=== PATIENT | female | born 1935 | race Caucasian/White ===

== ENCOUNTER 2016-08-19 23:45 | Inpatient (IN) | payer OTHER ==
[~2016-08-19] VITALS: Ht 152.4 cm; Wt 58.6 kg
[~2016-08-19 23:45] MED LIST: ALENDRONATE SOD70 M2 PO
[2016-08-20 00:18] LABS: BASOPHIL % 0.3 % (0-2); PLATELET COUNT 277 x10^3mcL (130-400); RED CELL DISTRIBUTION WIDTH 13.6 % (11.5-14.5)
[2016-08-20 00:28] LABS: CALCIUM 8.7 mg/dL (8.5-10.1); CARBON DIOXIDE 26.6 mmol/L (21-32); CHLORIDE SERUM 107 mmol/L (98-107); GLUCOSE SERUM 155 mg/dL (74-106); POTASSIUM SERUM 3.8 mmol/L (3.5-5.1); SODIUM SERUM 143 mmol/L (136-145)
[2016-08-20 00:32] LABS: ALBUMIN 3.7 g/dL (3.4-5.0); ALKALINE PHOSPHATASE 99 U/L (46-116); ALT/SGPT 14 U/L (14-59); AST/SGOT 14 U/L (15-37); BILIRUBIN TOTAL 0.2 mg/dL (0.20-1.00); TOTAL PROTEIN, SERUM 7.9 g/dL (6.4-8.2)
[2016-08-20 02:44] VITALS: BP 127/41
[2016-08-20] MEDS ORDERED: ASPIR 8181 MG PO (02:53)
[2016-08-20] MEDS ORDERED: OMEPRAZOLE20 M4 PO (02:53)
[2016-08-20] MEDS ORDERED: RANITIDINE HCL300 MG PO (02:54)
[2016-08-20] MEDS ORDERED: BONIVA150 M1 PO (02:54)
[2016-08-20 04:22] LABS: MAGNESIUM 1.9 mg/dL (1.8-2.4); PHOSPHOROUS 2.7 mg/dL (2.5-4.9)
[2016-08-20 04:35] LABS: CHOLESTEROL/HDL RATIO 3.6
[2016-08-20 04:51] LABS: FREE T4 1.14 ng/dL (0.76-1.46); FREE THYROXINE INDEX 2.7 ug/dL (1.4-4.5); T4(THYROXINE) 7.5 ug/dL (4.7-13.3)
[2016-08-20 05:09] LABS: T3 TOTAL 0.99 ng/mL
[2016-08-20 07:24] LABS: AMPHETAMINE QUAL UR NONE DETECTED (NEG <=1000)
[2016-08-20 09:42] LABS: UA SPECIFIC GRAVITY >=1.030 (1.005-1.035); microscopic required? YES; urine erythrocyte NEGATIVE (NEGATIVE)
[2016-08-20 10:21] VITALS: BP 118/60
[2016-08-20 12:46] LABS: BASOPHIL % 0.1 % (0-2); PLATELET COUNT 222 x10^3mcL (130-400); RED CELL DISTRIBUTION WIDTH 13.7 % (11.5-14.5)
[2016-08-20 12:54] LABS: CALCIUM 8.1 mg/dL (8.5-10.1); CHLORIDE SERUM 109 mmol/L (98-107); CREATININE SERUM 0.7 mg/dL (0.6-1.0); GLUCOSE SERUM 107 mg/dL (74-106); POTASSIUM SERUM 3.9 mmol/L (3.5-5.1); SODIUM SERUM 141 mmol/L (136-145)
[2016-08-20 15:00] VITALS: BP 123/63
[2016-08-20 18:33] VITALS: BP 106/69
[2016-08-20 22:31] VITALS: BP 122/61
[2016-08-21 00:04] LABS: BASOPHIL % 0.2 % (0-2); PLATELET COUNT 205 x10^3mcL (130-400); RED CELL DISTRIBUTION WIDTH 13.8 % (11.5-14.5)
[2016-08-21 05:43] VITALS: BP 102/62
[2016-08-21 06:37] LABS: BASOPHIL % 0.2 % (0-2); PLATELET COUNT 199 x10^3mcL (130-400); RED CELL DISTRIBUTION WIDTH 13.6 % (11.5-14.5)
[2016-08-21 06:52] LABS: CALCIUM 7.8 mg/dL (8.5-10.1); CHLORIDE SERUM 111 mmol/L (98-107); CREATININE SERUM 0.7 mg/dL (0.6-1.0); GLUCOSE SERUM 99 mg/dL (74-106); PHOSPHOROUS 2.8 mg/dL (2.5-4.9); POTASSIUM SERUM 3.6 mmol/L (3.5-5.1); SODIUM SERUM 144 mmol/L (136-145)
[2016-08-21 09:15] VITALS: BP 138/71
[2016-08-21 17:27] VITALS: BP 124/58
[2016-08-21 21:10] VITALS: Ht 152.4 cm; Wt 58.6 kg
[2016-08-21 22:07] VITALS: BP 118/59
[2016-08-22 06:20] VITALS: BP 114/53
[2016-08-22 06:32] LABS: CALCIUM 7.8 mg/dL (8.5-10.1); CARBON DIOXIDE 26.3 mmol/L (21-32); CHLORIDE SERUM 108 mmol/L (98-107); CREATININE SERUM 0.8 mg/dL (0.6-1.0); GLUCOSE SERUM 130 mg/dL (74-106); SODIUM SERUM 141 mmol/L (136-145)
[2016-08-22 08:26] LABS: BASOPHIL % 0.4 % (0-2); PLATELET COUNT 189 x10^3mcL (130-400); RED CELL DISTRIBUTION WIDTH 14.1 % (11.5-14.5)
[2016-08-22 10:01] VITALS: BP 108/46
[2016-08-22 16:39] LABS: BASOPHIL % 0.1 % (0-2); PLATELET COUNT 185 x10^3mcL (130-400); RED CELL DISTRIBUTION WIDTH 13.7 % (11.5-14.5)
[2016-08-22 17:58] VITALS: BP 127/61
[2016-08-22 21:50] VITALS: BP 110/48
[2016-08-23 06:17] VITALS: BP 114/55
[2016-08-23 06:37] LABS: CARBON DIOXIDE 27.3 mmol/L (21-32); CHLORIDE SERUM 105 mmol/L (98-107); CREATININE SERUM 0.7 mg/dL (0.6-1.0); GLUCOSE SERUM 106 mg/dL (74-106); MAGNESIUM 1.8 mg/dL (1.8-2.4); PHOSPHOROUS 2.6 mg/dL (2.5-4.9); POTASSIUM SERUM 4.1 mmol/L (3.5-5.1); SODIUM SERUM 139 mmol/L (136-145)
[2016-08-23 07:23] LABS: BASOPHIL % 0.4 % (0-2); PLATELET COUNT 191 x10^3mcL (130-400); RED CELL DISTRIBUTION WIDTH 13.9 % (11.5-14.5)
[2016-08-23 07:31] LABS: rbc morphology (normal/abnorm) ABNORMAL (NORMAL)
[2016-08-23 10:35] VITALS: BP 118/55
[2016-08-23 18:36] VITALS: BP 121/53
[2016-08-23 21:40] VITALS: BP 135/71
[2016-08-24 01:33] LABS: BASOPHIL % 0.4 % (0-2); PLATELET COUNT 190 x10^3mcL (130-400)
[2016-08-24 01:40] LABS: RED CELL DISTRIBUTION WIDTH 14.7 % (11.5-14.5)
[2016-08-24 05:53] VITALS: BP 97/43
[2016-08-24 06:04] LABS: BASOPHIL % 1.2 % (0-2); PLATELET COUNT 198 x10^3mcL (130-400); RED CELL DISTRIBUTION WIDTH 13.7 % (11.5-14.5)
[2016-08-24 06:41] LABS: CALCIUM 8.4 mg/dL (8.5-10.1); CARBON DIOXIDE 30.5 mmol/L (21-32); CHLORIDE SERUM 105 mmol/L (98-107); CREATININE SERUM 0.8 mg/dL (0.6-1.0); GLUCOSE SERUM 101 mg/dL (74-106); POTASSIUM SERUM 3.7 mmol/L (3.5-5.1); SODIUM SERUM 141 mmol/L (136-145)
[2016-08-24 09:19] VITALS: BP 120/60
[2016-08-24] MEDS ORDERED: METHOCARBAMOL500 MG PO (09:33)
[2016-08-24] MEDS ORDERED: HEP5I SC (09:35)
[2016-08-24] MEDS ORDERED: COL100 PO (09:41)
[2016-08-24] MEDS ORDERED: GAS RELIEF80 MG CH (09:41)
[2016-08-24] MEDS ORDERED: TYL325 PO (09:41)
[2016-08-24] MEDS ORDERED: APAP/HYDROCODON1 T13 PO (09:41)
[2016-08-24] MEDS ORDERED: PEP20 PO (09:42)
[2016-08-24] MEDS ORDERED: ZOFI IM (09:42)
[2016-08-24] MEDS ORDERED: PRI20 PO (09:42)
[2016-08-24] MEDS ORDERED: LAC PO (09:42)
[2016-08-24] MEDS ORDERED: AUG500 PO (10:26)
== END 2016-08-24 13:30 | DRG 480 ==
LOC: ED 23:45 → DU 08-20 01:53 → MU 08-20 01:53 → DU 08-20 02:21 → MU 08-21 20:16
PROVIDERS: Emergency Medicine; Family Medicine; Neuromusculoskeletal Medicine, Sports Medicine; ADMIT Family Medicine
PROC: 0QS706Z Reposition Left Upper Femur with Intramedullary Internal Fixation Device, Open Approach (ICD-10-PCS; principal; 2016-08-21 11:30)
DX: S72.22XA Displaced subtrochanteric fracture of left femur, initial encounter for closed fracture (principal); E43 Unspecified severe protein-calorie malnutrition; N17.0 Acute kidney failure with tubular necrosis; K21.9 Gastro-esophageal reflux disease without esophagitis; D64.9 Anemia, unspecified; F43.0 Acute stress reaction; D72.829 Elevated white blood cell count, unspecified; W18.39XA Other fall on same level, initial encounter; Y93.01 Activity, walking, marching and hiking; Y92.018 Other place in single-family (private) house as the place of occurrence of the external cause; Z96.641 Presence of right artificial hip joint; M81.0 Age-related osteoporosis without current pathological fracture; Z79.82 Long term (current) use of aspirin; Z68.25 Body mass index [BMI] 25.0-25.9, adult
CPT/HCPCS: 80307; 83880; 84439; 90658; 90732; 97110-GP; 97116-GP; 97530-GP; A4570; C1713; J0690; J0696; J1644; J1885; J2270; J2405; J2543; J2704; J3010; J7030; J7040; J7050; J7120; P9016; Q0092; Q0163